=== PATIENT | male | born 1975 | race Caucasian/White ===

== ENCOUNTER 2019-01-05 07:27 | Emergency (ER) | payer MEDICAID ==
[2019-01-05 08:21] LABS: Hemoglobin 14.6 g/dL (14.0-18.0); Mean Corpuscular HGB CONC 31.7 g/dL (32.0-36.0); Mean Corpuscular Hemoglobin 27.4 pg (27.0-31.0); Mean Corpuscular Volume 86.5 fL (78.0-98.0); Mean Platelet Volume 8.7 fL (7.4-10.4); Platelet Count 331 thou/uL (130-400); White Blood Cell (WBC) Count 13.1 thou/uL (4.8-10.8)
[2019-01-05 08:22] LABS: #Basophils 0.1 thou/uL (0.0-0.2); #Eosinphils 0.1 thou/uL (0.0-0.7); #Lymphocytes 0.9 thou/uL (1.20-3.40); #Monocytes 0.8 thou/uL (0.11-0.59); #Neutrophils 11.2 thou/uL (1.40-6.50); %Basophils 0.9 % (0.0-1.0); %Eosinophils 1.1 % (0.0-10.0); %Lymphocytes 6.6 % (21.0-51.0); %Monocytes 6.2 % (0.0-10.0); %Neutrophils 85.2 % (42.0-75.0)
[2019-01-05 08:34] LABS: ALT (SGPT) 18 U/L (8-55); AST (SGOT) 14 U/L (5-34); Albumin 4.6 g/dL (3.5-5.0); Alkaline Phosphatase 78 U/L (40-110); Anion Gap 16 mmol/L (10-20); BUN (Urea Nitrogen) 13 mg/dL (8.9-20.6); Bilirubin, Total 0.2 mg/dL (0.2-1.2); Calc. Creatinine Clearance 0 mL/min (70-130); Calcium 9.4 mg/dL (7.8-10.44); Carbon Dioxide 23 mmol/L (22-29); Chloride 105 mmol/L (98-107); Estimated GFR-MDRD Greater than 90; Globulin 2.7 g/dL (2.4-3.5); Glucose 118 mg/dL (70-105); Lipase 35 U/L (8-78); Potassium 4.5 mmol/L (3.5-5.1); Protein, Total 7.3 g/dL (6.0-8.3); Sodium 139 mmol/L (136-145)
[2019-01-05] MEDS ORDERED: Ondansetron ODT 4 MG TAB ONE (09:07)
[2019-01-05] MEDS ORDERED: Mag-Al Plus 1200 MG/1200 MG/120 MG/30 ML UDCUP ONE (09:08)
--- NOTE | 2019-01-05 09:38 | RAD ---
TWO VIEW CHEST: HISTORY: Chest pain. FINDINGS: Mild hyperexpansion with flattened diaphragms. No infiltrate. Vascular markings upper normal. Hear t size within normal range. IMPRESSION: No acute process. POS: OFF
== END 2019-01-05 09:26 | disposition home or self-care (01) ==
LOC: NAV ERS 07:27
DX: R07.9 Chest pain, unspecified (principal); R10.13 Epigastric pain; R11.2 Nausea with vomiting, unspecified; Z75.1 Person awaiting admission to adequate facility elsewhere
CPT/HCPCS: 71046; 80053; 83690; 84484; 85025; 93005; Q0162